=== PATIENT | female | born 1985 | race Caucasian/White ===

== ENCOUNTER 2019-12-01 15:34 | Emergency (ER) | payer MEDICAID ==
[~2019-12-01] VITALS: Ht 154.9 cm; Wt 74.4 kg
[2019-12-01 15:43] VITALS: BP_SYST 159
--- NOTE | 2019-12-01 15:45 | NUR ---
no answer in [place]r
--- NOTE | 2019-12-01 16:00 | NUR ---
no answer in [place]
--- NOTE | 2019-12-01 16:15 | NUR ---
no answer in [place]
== END 2019-12-01 16:15 | disposition left against medical advice (07) ==
LOC: SED 15:34
DX: R05 Cough (principal); Z53.21 Procedure and treatment not carried out due to patient leaving prior to being seen by health care provider